=== PATIENT | male | born 1980 | race Caucasian/White ===

== ENCOUNTER 2023-05-19 10:22 | Emergency (ER) | payer BC ==
[2023-05-19] MEDS ORDERED: Tetracaine HCl/PF 0.5% 4 ML Bottle EYEBOTH ONE (10:56)
[2023-05-19] MEDS ORDERED: Fluorescein 1 MG Ophth Strip EYELF ONE (10:56)
== END 2023-05-19 11:54 | disposition home or self-care (01) ==
LOC: MW.ED 10:22
DX: H18.822 Corneal disorder due to contact lens, left eye (principal); Z88.8 Allergy status to other drugs, medicaments and biological substances; Z86.16 Personal history of COVID-19
CPT/HCPCS: 99283; J3490

== ENCOUNTER 2023-10-31 16:30 | Emergency (ER) | payer BC ==
[2023-10-31 18:01] LABS: CORONAVIRUS COVID-19 NAA NEGATIVE (NEGATIVE); INFLUENZA A NAA NEGATIVE (NEGATIVE); INFLUENZA B NAA NEGATIVE (NEGATIVE); RESPIRATORY SYNCYTIAL VIR NAA NEGATIVE (NEGATIVE)
[2023-10-31] MEDS ORDERED: Acetaminophen 500 MG Tab PO ONE (18:44)
[2023-10-31] MEDS ORDERED: Dexamethasone 10 MG/ML SDV IM STA (18:44)
== END 2023-10-31 19:23 | disposition home or self-care (01) ==
LOC: MW.ED 16:30
DX: J06.9 Acute upper respiratory infection, unspecified (principal); Z20.822 Contact with and (suspected) exposure to COVID-19; F17.210 Nicotine dependence, cigarettes, uncomplicated; Z88.8 Allergy status to other drugs, medicaments and biological substances; Z86.16 Personal history of COVID-19
CPT/HCPCS: 0241U; 96372; 99283; A9270; J1100